=== PATIENT | female | born 1995 | race American Indian/Alaskan Native ===

== ENCOUNTER 2019-01-29 14:39 | Emergency (ER) | payer OTHER ==
[2019-01-29] MEDS ORDERED: IBUPROFEN PO ONE ×2 (15:07→15:10)
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
[2019-01-29 15:10] VITALS: BP 121/64
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
== END 2019-01-29 16:55 | disposition home or self-care (01) ==
LOC: ED 14:39
DX: S16.1XXA Strain of muscle, fascia and tendon at neck level, initial encounter (principal); S39.012A Strain of muscle, fascia and tendon of lower back, initial encounter; V89.2XXA Person injured in unspecified motor-vehicle accident, traffic, initial encounter; Y93.89 Activity, other specified; Y92.410 Unspecified street and highway as the place of occurrence of the external cause; Y99.8 Other external cause status
CPT/HCPCS: 72040; 72100; 99283

== ENCOUNTER 2019-03-15 11:48 | Emergency (ER) | payer SELFPAY ==
[2019-03-15 12:05] VITALS: BP 128/82
--- NOTE | 2019-03-15 12:08 | Emergency Department Report ---
Chief Complaint: Nausea/Vomiting/Diarrhea Stated Complaint: VOMIT BLOOD/CHEST AND BACK PAIN Time Seen by Provider: 03/15/19 12:04 - HPI History of Present Illness: This is a 23 y.o. female that presents to the ER with URI symptoms for 1 week. Reports myalgia, cough, congestion, and chest discomfort. Denies risk - Exam Vital Signs: Vital Signs 03/15/19 12:04 Temperature 98.4 F Pulse Rate 75 Respiratory 18 Rate Blood Pressure 128/82 O2 Sat by Pulse 99 Oximetry MSE screening note: Focused history and physical exam performed. Due to findings the following was ordered: CXR ED Disposition for MSE Condition: Stable
--- NOTE | 2019-03-15 12:31 | XRay Report ---
ROUTINE CHEST, TWO VIEWS: HISTORY: Cough and congestion. The trachea, heart, mediastinal contour, lung franco and bony thorax are unremarkable. IMPRESSION: Unremarkable chest x-ray.
--- NOTE | 2019-03-15 15:43 | Emergency Department Report ---
Minor Respiratory - HPI Chief Complaint: Nausea/Vomiting/Diarrhea Stated Complaint: VOMIT BLOOD/CHEST AND BACK PAIN Time Seen by Provider: 03/15/19 12:04 Duration: 3 Days Pain Location: Facial, Throat, Nose, Ear, Chest Severity: moderate Minor Respiratory: Yes Rhinorrhea, Yes Sore Throat, Yes Able to Tolerate Fluids, Yes Cough, No Ear Pain, No Sick Contacts, No Hemoptysis, No Chest Pain, No Shortness of Breath, No Fever Other History: Patient is a 23-year-old female comes to the ER today complaining of what started started as a headache over her sinuses and postnasal drip. It has progressed into a cough. She has no fever. She does have a runny nose. No ear pain. She does have a sore throat. Vital signs are stable. She is afebrile. Ambulatory and taking by mouth. ED Review of Systems ROS: Stated complaint: VOMIT BLOOD/CHEST AND BACK PAIN Other details as noted in HPI Comment: All other systems reviewed and negative ED Past Medical Hx - Past Medical History Previous Medical History?: No - Surgical History Past Surgical History?: No - Social History Smoking Status: Never Smoker Substance Use Type: None - Medications Home Medications: Home Medications Medication Instructions Recorded Confirmed Last Taken Type Azithromycin [Zithromax Z-ROSA] 250 mg PO DAILY #6 tablet 03/15/19 Unknown Rx Benzonatate [Tessalon Perles] 100 mg PO Q8HR PRN #20 capsule 03/15/19 Unknown Rx Cetirizine HCl [ZyrTEC] 10 mg PO DAILY #30 capsule 03/15/19 Unknown Rx Fluticasone [Flonase] 1 spray NS QDAY #1 bottle 03/15/19 Unknown Rx predniSONE [Deltasone] 20 mg PO DAILY #5 tablet 03/15/19 Unknown Rx Minor Respiratory Exam - Exam General: Vital signs noted. No distress. Alert and acting appropriately. HEENT: Yes Pharyngeal Erythema, Yes Moist Mucous Membranes, Yes Rhinorrhea, No Pharyngeal Exudates, No Conjuctival Injection, No Frontal Tenderness, No Maxillary Tenderness Ear: Neither TM Bulge, Neither TM Erythema, Neither EAC Pain, Neither EAC Discharge Neck: Yes Supple, No Adenopathy Lungs: Yes Good Air Exchange, Yes Cough, No Wheezes, No Ronchi, No Stridor, No Labored Respirations, No Retractions, No Use of Accessory Muscles, No Other Abnormal Lung Sounds Heart: Yes Regular, No Murmur Abdomen: No Tenderness Skin: No Rash, No Edema Neurologic: Alert and oriented, no deficits. Musculoskeletal: Unremarkable. ED Course Vital Signs 03/15/19 12:04 Temperature 98.4 F Pulse Rate 75 Respiratory 18 Rate Blood Pressure 128/82 O2 Sat by Pulse 99 Oximetry Critical care attestation.: If time is entered above; I have spent that time in minutes in the direct care of this critically ill patient, excluding procedure time. ED Disposition Clinical Impression: URTI (acute upper respiratory infection), Sinusitis, Bronchitis Disposition: TO HOME OR SELFCARE Is pt being admited?: No Does the pt Need Aspirin: No Condition: Stable Instructions: Acute Bronchitis (ED) Additional Instructions: DIET TOLERATED MEDS ORDERED TODAY IN ER FOLLOW INSTRUCTIONS ON THE BOTTLE FOLLOW UP PCP WITHIN 48 HOURS TO ENSURE YOU ARE GETTING BETTER ACTIVITY TOLERATED MOTRIN OR TYLENOL FOR PAIN OR FEVER RETURN TO THE ER FOR WORSENING SYMPTOMS NOT RELIEVED BY YOUR MEDICATIONS. Referrals: ANUSHKA REYES MD [Primary Care Provider] - 3-5 Days Time of Disposition: 15:40
== END 2019-03-15 15:55 | disposition home or self-care (01) ==
LOC: ED 11:48
DX: J06.9 Acute upper respiratory infection, unspecified (principal); J40 Bronchitis, not specified as acute or chronic; J32.9 Chronic sinusitis, unspecified
CPT/HCPCS: 71046; 99283